=== PATIENT | male | born 1995 | race Caucasian/White ===

== ENCOUNTER 2024-08-22 00:14 | Emergency (ER) | payer BC, SELFPAY ==
[2024-08-22 00:15] VITALS: BMI 27.2
[2024-08-22 00:39] LABS: Collection Type, Urine Clean Catch; Squamous Epithelial Cell,Urine 0 /hpf (0-5)
[2024-08-22 00:49] LABS: Bilirubin,Urine Negative (Negative); Blood,Urine 3+ (Negative); Clarity,Urine Turbid (Clear/Hazy); Color,Urine Brown (Lt Yel-Yel); Culture Indicated,Urine Not Indicated; Glucose, Urine Negative (Negative); Ketones,Urine Negative (Negative); Leukocyte Esterase,Urine Negative (Negative); Nitrite,Urine Negative (Negative); PH,Urine 6.0 (5.0-7.0); Protein,Urine 2+ (Neg - Trace); RBC,Urine 209 /hpf (0-3); Specific Gravity,Urine 1.014 (1.001-1.035); Urobilinogen,Urine Negative mg/dL (0.0-1.0); WBC,Urine 8 /hpf (0-5)
[2024-08-22 00:56] LABS: Amphetamine/Methamp Scrn,U Negative (Negative); Barbiturate Screen,Urine Negative (Negative); Benzodiazepines Screen,Urine Negative (Negative); Benzoylecgonine Screen, Ur Negative (Negative); Fentanyl Screen,Urine Negative (Negative); Opiate Screen,Urine Negative (Negative); THC Screen,Urine Negative (Negative)
[2024-08-22 01:13] VITALS: BP 106/63; PULSE 83; RESP 18; TEMP 36.7; O2SAT 95
--- NOTE | 2024-08-22 02:42 | EDNOTE_ITS ---
<Statement entered by Angelina Fuentes MD - 08/22/24 05:21> As co-signing physician, I was present and available for consult prn. I concur with the plan and care as documented by the midlevel provider. ED Male Genitalurinary RME/HPI General Chief complaint: Urogenital-Male Stated complaint: URINATING BLOOD Time Seen by Provider: 08/22/24 02:19 Arrival date/time: 08/22/24 00:14 RME / HPI RME / HPI Narrative: 28-year-old male presents to the ED with a complaint of urinating blood and passage of blood clots. He has been having hematuria for the past 2 weeks and thought it would go away on its own as it has on the previous occasion. Tonight, after having intercourse, he noticed blood in his semen. He used the restroom to urinate and a large blood clot was passed. He denies any dysuria or frequency. He denies any flank pain or abdominal pain. He denies any pain extending into his testicles. He has had a clear to white discharge recently. The previous occurrence of hematuria, he states he was checked out by his primary care physician for STDs and was found to be negative. He denies any blood work or imaging studies of his kidneys. Related Data Allergies Allergy/AdvReac Type Severity Reaction Status Date / Time No Known Allergies Allergy Verified 08/22/24 00:15 Review of Systems Review of Systems Systems Reviewed: All systems reviewed, normal except as documented Past Medical History Past Medical History CARDIAC: Negative Congestive Heart Failure RESPIRATORY: Negative Chronic Obstructive Pulmonary Disease (COPD) GENITOURINARY: Negative Renal Disease ENDOCRINE: Negative Diabetes Mellitus Type 1 or Diabetes Mellitus Type 2 Social History SMOKING STATUS: Current every day smoker ED Exam Narrative Physical exam: Alert and oriented 28-year-old male, afebrile and nontoxic-appearing, no acute distress. Lungs are clear, regular rate and rhythm. Abdomen is soft and nonten mayito. No flank tenderness, no CVA tenderness. No suprapubic tenderness. Course Course Course Narrative: Vital signs: Blood pressure 106/63, pulse 83, respirations 18 and nonlabored, temp 98.1, O2 sat 95% on room air. CBC reveals a normal white count, normal hemoglobin, mildly low hematocrit of 39.2, normal platelets. CMP is normal, with normal renal function. Urinalysis reveals turbid brown urine with a specific gravity of 1.014 with 2+ protein, negative glucose, negative ketones, 3+ blood, negative nitrites, negative leukocyte esterase, negative urine bilirubin, 209 RBCs, 8 WBCs and no bacteria. Urine drug screen is negative. Renal ultrasound reveals: Right: The right kidney measures 10.8 x 2 x 5.3 cm and demonstrates mild cortical scarring. There is no hydronephrosis or renal calculus. The corticomedullary differentiation is maintained. Left: The left kidney measures 10.5 x 2.5 x 5.5 cm and demonstrates mild cortical scarring. There is no hydronephrosis or renal calculus. The corticomedullary differentiation is maintained. Both kidneys demonstrate normal color flow signal on limited Doppler evaluation. The urinary bladder is distended with prevoid volume of 94 mL and postvoid volume of 12 mL. Both ureteral jets are visualized. The prostate measures 4.7 x 2.6 x 3.9 cm with volume of 25 mL. Quality Measures none Orders Category Date Time Status US renal BI Stat Exams 08/22/24 02:48 Taken CBC Stat Lab 08/22/24 03:22 Completed CMP [Comprehensive Metabolic Panel] Stat Lab 08/22/24 03:22 Completed Drug Screen,Urine Stat Lab 08/22/24 00:33 Completed UA, C/S IF [Urinalysis, C/S if Indicated] Stat Lab 08/22/24 00:33 Completed Vital Signs Vital signs: Vital Signs Temperature 98.1 F 08/22/24 01:13 Pulse Rate 83 08/22/24 01:13 Respiratory Rate 18 08/22/24 01:13 Blood Pressure 106/63 08/22/24 01:13 Pulse Oximetry (%) 95 08/22/24 01:13 Oxygen Delivery Method Room Air 08/22/24 01:13 Urogenital - Male MDM Narrative MDM Narrative:: 28-year-old male presents to the ED with a complaint of urinating blood and passage of blood clots. He has been having hematuria for the past 2 weeks and thought it would go away on its own as it has on the previous occasion. Tonight, after having intercourse, he noticed blood in his semen. He used the restroom to urinate and a large blood clot was passed. He denies any dysuria or frequency. He denies any flank pain or abdominal pain. He denies any pain extending into his testicles. He has had a clear to white discharge recently. The previous occurrence of hematuria, he states he was checked out by his primary care physician for STDs and was found to be negative. He denies any blood work or imaging studies of his kidneys. Alert and oriented 28-year-old male, afebrile and nontoxic-appearing, no acute distress. Lungs are clear, regular rate and rhythm. Abdomen is soft and nontender. No flank tenderness, no CVA tenderness. No suprapubic tenderness. Vital signs: Blood pressure 106/63, pulse 83, respirations 18 and nonlabored, temp 98.1, O2 sat 95% on room air. CBC reveals a normal white count, normal hemoglobin, mildly low hematocrit of 39.2, normal platelets. CMP is normal, with normal renal function. Urinalysis reveals turbid brown urine with a specific gravity of 1.014 with 2+ protein, negative glucose, negative ketones, 3+ blood, negative nitrites, negative leukocyte esterase, negative urine bilirubin, 209 RBCs, 8 WBCs and no bacteria. Urine drug screen is negative. Renal ultrasound reveals: Right: The right kidney measures 10.8 x 2 x 5.3 cm and demonstrates mild cortical scarring. There is no hydronephrosis or renal calculus. The corticomedullary differentiation is maintained. Left: The left kidney measures 10.5 x 2.5 x 5.5 cm and demonstrates mild cortical scarring. There is no hydronephrosis or renal calculus. The corticomedullary differentiation is maintained. Both kidneys demonstrate normal color flow signal on limited Doppler evaluation. The urinary bladder is distended with prevoid volume of 94 mL and postvoid volume of 12 mL. Both ureteral jets are visualized. The prostate measures 4.7 x 2.6 x 3.9 cm with volume of 25 mL. Symptoms, exam, and diagnostic studies are consistent with gross hematuria without signs of UTI or renal calculi. Patient was advised to follow-up with his primary care physician for a referral to a urologist for further workup and evaluation including a cystoscopy to determine the exact cause of the hematuria. Patient was encouraged to return to the ED for any new or worsening symptoms. Patient data External records reviewed:: [facility] previous records Clinical information provided by:: patient Social determinants that could affect healthcare access:: none Patient has the following chronic illnesses:: Previous gross hematuria. How is presenting disease/condition affected by chronic disease/condition?: exacerbated by Evaluation data The following diagnostics were reviewed and interpreted by me:: lab results and radiology exam(s) Lab and/or radiology exams considered but not ordered:: N/A Interpretation Summary: As noted above Medications / Prescriptions Medications or Prescriptions considered but not ordered:: N/A Medication administrations:: N/A Consultations Consultation(s) initiated? (list below): No Consultation #1 (Physician, Specialty, Details): No urology specialist on-call. Diagnosis Urogenital Male Differential Diagnosis: urinary tract infection, epididymitis, prostatitis and other (Hematuria, renal calculi) Most likely diagnosis given after review of the tests above:: Gross hematuria Admission Indicated Admission indicated?: not indicated Explain why admission is indicated or not indicated:: Patient is stable for discharge Admission Request Was there a request for admission?: No Disposition Plan Disposition Plan: Discharge Discharge Attestation Discharge Attestation: The patient and all family members were given an opportunity to ask questions and understood the discharge instructions. Discharge instructions specifically effects, indications for sooner follow up or return to the emergency department, and the expected course of current diagnosis. Patient condition: Stable Discharge Plan Plan Patient Disposition: HOME (Self Care) Discharge Disposition comment: Stable Prescriptions/Referrals Referrals: No Primary/Family,Physician [Primary Care Provider] - In 1 week Problem List Clinical Impression: Recurrent gross hematuria Patient/Caregiver Discharge Instructions Education Materials: Hematuria: Possible Causes, ED Hematuria Additional Instructions: Follow-up with your primary care physician in 24 to 48 hours. You will need a referral to a urologist for further workup and evaluation including a cystoscopy to determine the exact cause of your hematuria. Return to the ED for any new or worsening symptoms. Print Language: Egyptian Stand Alone Forms: [employer] Award Info., Patient Portal Info Letter PA/LIZZIE Supervising Physician PA/LIZZIE Supervising Physician: Dr. Fuentes
--- NOTE | 2024-08-22 02:48 | XR_ITS ---
Examination: Retroperitoneal ultrasound, complete Technique: Multiple high resolution grayscale images of the retroperitoneum obtained, including kidneys and bladder. Exam date and time:August 22, 2024 0256 hours Comparison June 26, 2022 INDICATIONS: Hematuria 2 weeks FINDINGS: Right kidney 10.8 cm renal cortex 2.0 cm Left kidney 10.5 cm renal cortex 2.5 cm No renal calculi or hydronephrosis No bladder mass or bladder calculi Bladder prevoid volume of 94 cc Prostate volume 25.2 cc no prostate nodules IMPRESSION: Mild bilateral renal parenchymal scar formation No hydronephrosis or renal calculi
[2024-08-22 03:29] LABS: Basophils # (Auto) 0.1 Thou/mm3 (0.0-0.2); Basophils % (Auto) 1 % (0-2.5); Eosinophils # (Auto) 0.2 Thou/mm3 (0.0-0.5); Eosinophils % (Auto) 2 % (0-10); Hematocrit 39.2 % (41.0-53.0); Hemoglobin 14.0 g/dL (13.5-16.0); Immature Granulocytes Auto 0.04 Thou/mm3 (0.00-0.00); Lymphocytes # (Auto) 2.9 Thou/mm3 (1.0-4.8); Lymphocytes % (Auto) 32 % (10-50); Mean Corpuscular HGB Conc 35.7 g/dl (31.0-37.0); Mean Corpuscular Hemoglobin 31.0 pg (25.0-35.0); Mean Corpuscular Volume 87 fL (80-100); Monocytes # (Auto) 1.0 Thou/mm3 (0.0-0.8); Monocytes % (Auto) 11 % (0-12); Neutrophils # (Auto) 4.9 Thou/mm3 (1.8-7.7); Neutrophils % (Auto) 54 % (37-80); Nucleated Red Blood Cell # 0.00 Thou/mm3 (0.00-0.00); Nucleated Red Blood Cell % 0 /100 WBC (0); Platelet Count 296 Thou/mm3 (140-440); RDW Standard Deviation 38.6 fL (35.1-43.9); Red Blood Count 4.52 Miln/mm3 (4.50-5.90); White Blood Count 9.0 Thou/mm3 (3.8-10.6)
[2024-08-22 04:01] LABS: Alanine Aminotransferase 15 U/L (10-49); Albumin, Serum 4.7 gm/dL (3.5-5.0); Albumin/Globulin Ratio 1.5 (1.2-2.2); Alkaline Phosphatase 61 U/L (46-116); Anion Gap 12 (7-16); Aspartate Amino Transferase 26 U/L (0-34); BUN/Creatinine Ratio 11 Ratio (12-20); Bilirubin,Total 0.6 mg/dL (0.3-1.2); Blood Urea Nitrogen 13 mg/dL (9-23); Calcium 9.5 mg/dL (8.3-10.6); Calcium (Corrected) 9.5 mg/dL (8.5-10.1); Carbon Dioxide 24.4 mMol/L (20.0-31.0); Chloride 107 mMol/L (98-107); Creatinine (Component) 1.2 mg/dL (0.6-1.3); Estimated Creatinine Clearance 96.3 mL/min (>60); Globulin 3.2 gm/dL (2.3-3.5); Glucose 92 mg/dL (74-106); Osmolality,Calculated 285 (275-295); Potassium 3.6 mMol/L (3.4-5.1); Sodium 143 mMol/L (136-145); Total Protein 7.9 gm/dL (5.7-8.2); eGFR > 60 See Note
--- NOTE | 2024-08-22 04:16 | PRELIM_ITS ---
Renal/Retroperitoneal ultrasound. August 22, 2024 0256 hours Clinical history: Db hematuria with clots. Technique: Duplex scan of the bilateral renal arterial and venous tree was performed utilizing 2D grayscale imaging, Doppler spectral analysis and color flow. Comparison: June 26, 2022. Findings: Right: The right kidney measures 10.8 x 2 x 5.3 cm and demonstrates mild cortical scarring. There is no hydronephrosis or renal calculus. The corticomedullary differentiation is maintained. Left: The left kidney measures 10.5 x 2.5 x 5.5 cm and demonstrates mild cortical scarring. There is no hydronephrosis or renal calculus. The corticomedullary differentiation is maintained. Both kidneys demonstrate normal color flow signal on limited Doppler evaluation. The urinary bladder is distended with prevoid volume of 94 mL and postvoid volume of 12 mL. Both ureteral jets are visualized. The prostate measures 4.7 x 2.6 x 3.9 cm with volume of 25 mL. Impression: No renal calculus or hydronephrosis. No significant postvoid residual urine. Report Electronically Signed By: Shar Linares 08/22/2024 4:15:32 AM [EST]
--- NOTE | 2024-08-22 05:06 | PC.NURSE ---
0425 [facility] transfer center was contacted for possible transfer for urology, due to hydro urinary nephrosis along with pylonephritis. Packet faxed over.
[2024-08-22 05:15] VITALS: BP 137/72; PULSE 87; RESP 18; TEMP 36.7; O2SAT 95
[2024-08-22 05:25] VITALS: RESP 16
== END 2024-08-22 05:26 | disposition home or self-care (01) ==
PROVIDERS: Physician Assistant; Emergency Provider Emergency Medicine
DX: R31.0 Gross hematuria (principal); N28.89 Other specified disorders of kidney and ureter
CPT/HCPCS: 36415; 76770; 80053; 80307; 81001; 85025; 99284